=== PATIENT | female | born 1955 | race Caucasian/White ===

== ENCOUNTER 2021-03-02 07:54 | Emergency (ER) | payer MEDICARE, SELFPAY ==
[2021-03-02 07:56] VITALS: BP 187/110; PULSE 70; RESP 16; TEMP 36.7; O2SAT 98; BMI 31.4
--- NOTE | 2021-03-02 07:58 | ECG_ITS ---
[facility] Test Date: 2021-03-02 Pat Name: Jenny Mcginnis Department: Room: Gender: Female [employer] Cook: : 1955 Requested By: Guero Serna Order Number: [id number] Karly MD: Mitra Barbosa M.D. Measurements Intervals [place] Rate: 65 P: 26 NM: 171 QRS: 217 QRSD: 157 T: 38 QT: 434 QTc: 453 Interpretive Statements SINUS RHYTHM INDETERMINATE AXIS RIGHT BUNDLE BRANCH BLOCK [120+ ms QRS DURATION, UPRIGHT V1, 40+ ms S IN I/aVL/V4/V5/V6] No previous ECG available for comparison Electronically Signed On 03-02-2021 21:07:08 CDT by Mitra Barbosa M.D. [id number] f
--- NOTE | 2021-03-02 07:58 | XR_ITS ---
WS: [id number] Portable AP upright chest, 03/02/2021 Clinical Data: chest pain Comparison: None. Findings: No nodules, masses or effusions are seen. The heart is slightly enlarged. The pulmonary vas cularity is not increased. No pneumonia or pneumothorax is seen. Midline sternotomy sutures are prese nt. There is a 2-lead pacemaker in position with the generator overlying the left upper chest. There are old fractures of the lateral left clavicle and proximal left humerus. XR/XR chest 1V portable [id number] Impression: Permanent pacemaker and cardiomegaly.
[2021-03-02 08:02] VITALS: BP 188/129; PULSE 65; PULSE 70; RESP 16; O2SAT 99
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
[2021-03-02] MEDS: nitroglycerin 1 gm/inch oint Pkt 1 INCH TOPICAL (08:17)
[2021-03-02] MEDS: aspirin 81 mg Chew Tablet 324 MG PO (08:18)
== END 2021-03-02 08:42 | disposition left against medical advice (07) ==
LOC: ER 08:51
PROVIDERS: Emergency Provider Family Medicine; PCP Nurse Practitioner Family
DX: R07.9 Chest pain, unspecified (principal); R05 Cough; Z79.84 Long term (current) use of oral hypoglycemic drugs; Z79.82 Long term (current) use of aspirin; I25.10 Atherosclerotic heart disease of native coronary artery without angina pectoris; E11.9 Type 2 diabetes mellitus without complications; I10 Essential (primary) hypertension; E78.5 Hyperlipidemia, unspecified; Z95.0 Presence of cardiac pacemaker; Z87.891 Personal history of nicotine dependence; I25.2 Old myocardial infarction
CPT/HCPCS: 71045; 93005; 99283; J0360